=== PATIENT | female | born 1975 | race Caucasian/White ===

== ENCOUNTER 2017-01-11 19:03 | Emergency (ER) | payer OTHER ==
[~2017-01-11] VITALS: Ht 152.4 cm; Wt 80.0 kg
[~2017-01-11 19:03] MED LIST: CITA20TA4 PO; CLON1TAB PO; LORA-474 PO; PREM0.45 PO; PRIN20TA2 PO; REGL10TA5 PO; VIST25CA PO
[2017-01-11 19:10] VITALS: BP 157/97; PULSE 107; RESP 20; TEMP 99.1; O2SAT 94
[2017-01-11] MEDS ORDERED: LORazepam 2 MG/ML VIAL IV PUSH ONE (19:30)
[2017-01-11] MEDS ORDERED: SODIUM CHLOR 0.9% 1000 ML INJ 1,000 ML IV ONE (19:30)
[2017-01-11] MEDS ORDERED: ESTR.9 PO (20:18)
[2017-01-11] MEDS ORDERED: METO10TA PO (20:18)
[2017-01-11] MEDS ORDERED: LISI-515 PO (20:18)
[2017-01-11] MEDS ORDERED: METO25TA6 PO (20:18)
[2017-01-11] MEDS ORDERED: CITA40TA4 PO (20:18)
[2017-01-11] MEDS ORDERED: GABA300C5 PO (20:18)
[2017-01-11] MEDS ORDERED: CLON0.5T PO (20:18)
[2017-01-11 20:19] VITALS: BP 134/82; PULSE 92; RESP 18; O2SAT 97
--- NOTE | 2017-01-11 20:24 | PD ---
HPI . Anxiety Chief Complaint: Anxiety Time Seen by Provider: 19:24 Travel History International Travel<30 days: No Contact w/Intl Traveler<30days: No Traveled to known affect area: No History of Present Illness HPI Patient presents complaining with anxiety. She states she's been having problems since she had her hysterectomy in April. 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 She is currently on Celexa, clonazepam, Reglan and Premarin. She states that she has nausea,. She paces all the time and feels fidgety. She reports decreased mental acuity. She states that her symptoms are worse today than usual. [id number]: Generalized SEVERITY: Severe DURATION:8-9 months TIMING: Daily CONTEXT: Started following a hysterectomy MODIFYING FACTORS: Unrelieved by Celexa, clonazepam, Reglan and Premarin PFSH Past Medical History Anxiety: Yes Cardiovascular Problems: Yes (HTN) Diabetes: No Diminished Hearing: No Endocrine: No Genitourinary: No Hepatitis: No Hiatal Hernia: No Hypertension: Yes Immune Disorder: No Musculoskeletal: Yes (arthritis in hands) Neurologic: No Psychiatric: No Reproductive: Yes (cyst) Respiratory: No Immunizations Current: Yes Thyroid Disease: No Tetanus Vaccination: Unknown Influenza Vaccination: Yes ?: Not Past Surgical History Abdominal Surgery: No AICD: No Cardiac Surgery: No Ear Surgery: No Endocrine Surgery: No Eye Surgery: No Genitourinary Surgery: No Gynecologic Surgery: Yes (LAPROSCOPY) Hysterectomy: Yes Joint Replacement: No Oral Surgery: No Pacemaker: No Thoracic Surgery: No Other Surgery: Yes Social History Alcohol Use: No Tobacco Use: No Substance Use: No Allergies-Medications (Allergen,Severity, Reaction): Coded Allergies: Codeine (Verified Allergy, Severe, Hives, 01/11/17) Sulfa (Verified Allergy, Severe, Hives, 01/11/17) [place] (Unverified Adverse Reaction, Severe, Hives, 01/11/17) Reported Meds & Prescriptions Reported Meds & Active Scripts Active Reported Gabapentin 300 Mg Cap 300 Mg PO TID Citalopram (Citalopram Hydrobromide) 40 Mg Tab 40 Mg PO DAILY Metoprolol Succinate ER 24 HR (Metoprolol Succinate) 25 Mg Tab 25 Mg PO DAILY Lisinopril 20 Mg Tab 20 Mg PO DAILY Premarin (Estrogens Conjugated) 0.9 Mg Tab 0.9 Mg PO DAILY Clonazepam 0.5 Mg Tab 0.5 Mg PO BID Metoclopramide (Metoclopramide HCl) 10 Mg Tab 10 Mg PO TIDAC Review of Systems Except as stated in HPI: all other systems reviewed are Neg General / Constitutional: No: Fever, Chills Gastrointestinal: Positive: Nausea Neurologic: Positive: Tremor, Change in Mentation (decreased mental acuity) Psychiatric: Positive: Anxiety, Other (can't be still) Physical Exam Narrative GENERAL: Healthy-appearing woman in no acute distress SKIN: Warm and dry. HEAD: Atraumatic. Normocephalic. EYES: Pupils equal and round. ENT: No nasal bleeding or discharge. Mucous membranes pink and moist. NECK: Trachea midline. CARDIOVASCULAR: Regular rate and rhythm. RESPIRATORY: No accessory muscle use. GASTROINTESTINAL: Abdomen soft, non-tender, nondistended. MUSCULOSKELETAL: No obvious deformities. No edema. NEUROLOGICAL: Awake and alert. No obvious cranial nerve deficits. Motor grossly within normal limits. Normal speech. She does have some tremors which are possibly intentional. PSYCHIATRIC: Appropriate mood and affect; insight and judgment normal. Data Data Last Documented VS Vital Signs Date Time Temp Pulse Resp B/P Pulse Ox O2 Delivery O2 Flow Rate FiO2 01/11/17 20:19 92 18 134/82 97 Room Air 01/11/17 19:10 99.1 Orders Sodium Chlor 0.9% 1000 Ml Inj (Ns 1000 M (01/11/17 19:30) Lorazepam Inj (Ativan Inj) (01/11/17 19:30) MDM Medical Decision Making Medical Screen Exam Complete: Yes Emergency Medical Condition: Yes Differential Diagnosis Differential diagnosis includes anxiety, attention seeking behavior, electrolyte abnormality, hormonal dysfunction Narrative Course Patient presents complaining with anxiety which has been a problem for her since she underwent a hysterectomy in April. Patient is markedly improved following Ativan. Diagnosis Primary Impression: Anxiety Disposition: DISCHARGE HOME Condition: Stable Fabienne Camacho MD Jan 11, 2017 20:24
[2017-01-11] MEDS ORDERED: LORA-474 PO (21:18)
[2017-01-11 21:46] VITALS: BP 137/78
== END 2017-01-11 21:48 | disposition home or self-care (01) ==
LOC: PHED 19:03
DX: F41.9 Anxiety disorder, unspecified (principal); R11.0 Nausea; I10 Essential (primary) hypertension; Z86.79 Personal history of other diseases of the circulatory system; Z87.39 Personal history of other diseases of the musculoskeletal system and connective tissue
CPT/HCPCS: 96361; 96374; 99283; J2060; J7030